=== PATIENT | male | born 1935 | race Caucasian/White ===

== ENCOUNTER 2017-10-07 22:06 | Inpatient (IN) | payer OTHER, MEDICAID ==
[~2017-10-07] VITALS: Ht 172.7 cm; Wt 95.3 kg
--- NOTE | ~2017-10-07 | WRIGHTHP ---
[place], [place] PATIENT HISTORY AND PHYSICAL EXAM NAME: AMIRA GILMORE UNIT #: [id number] ROOM: 309 DOCTOR: KATHY ACOSTA MD BIRTHDATE: [birth year] DOS: 10/08/2017 INITIAL PSYCHIATRIC EVALUATION. CHIEF COMPLAINT: "I don't know what I am doing here." HISTORY OF PRESENT ILLNESS: This is an 82-year-old white male, resident of [facility] who is admitted now due to sexually inappropriate behavior and aggression. The patient has become extremely sexually inappropriate at the [facility]. He has been wandering into female patients' rooms and has been grabbing their thighs and their legs. He has made very explicit sexual comments. He has openly stated that he is looking for [place] woman because they love to have sex more than other women. Attempts to redirect have been unsuccessful. If anything with redirection, he has become verbally and physically aggressive. His behavior is putting other residents at risk of harm and also himself. He is admitted now to rule out organic factors and to attempt to stabilize on medication. PAST MEDICAL HISTORY: Remarkable for Alzheimer's dementia, benign prostatic hypertrophy, coronary artery disease, degenerative disk disease, hypertension, non-ST elevated myocardial infarction, hyperlipidemia, obstructive sleep apnea, osteoarthritis, polyneuropathy, diabetes, and vitamin D deficiency. MENTAL STATUS: The patient is alert and oriented to person, possibly place, but not time. Mood is depressed. Affect is flat and blunted with constricted range. There is impulsivity issues and poor concentration and focus. There are no auditory or visual hallucinations. No delusions, no paranoia. Short term memory is poor and he processes slowly. 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 PLAN: I have already started him on Celexa to combat the depressive symptoms as well as decrease libido. I will increase the Celexa from 10 to 20 mg a day. I will add Exelon patch 4.6 mg a day to improve ADL maintenance, behavior, and cognition. Engage in individual and dominguez milieu activity with the ultimate plan to return to the least restrictive environment when psychiatrically stable. [place], [place] PATIENT HISTORY AND PHYSICAL EXAM NAME: AMIRA GILMORE UNIT #: [id number] ROOM: 309 DOCTOR: KATHY ACOSTA MD BIRTHDATE: [birth year] KATHY ACOSTA MD CM:HISPHYS:PATIENT HISTORY AND PHYSICAL EXAMINATION 1020 [id number] KATHY ACOSTA MD 10/08/17 1055 interface
--- NOTE | ~2017-10-07 | PR ---
[place], [place] PROGRESS NOTE NAME: AMIRA GILMORE [facility] #: [id number] UNIT #: [id number] ROOM: 311 DOCTOR: Edith CAMERON,WILFREDO BIRTHDATE: [birth year] DOS: 10/13/2017 SUBJECTIVE: Patient seen and spoke with staff. Per staff, patient did not have any sexually inappropriate behavior for the past 2 days. He is compliant with his medication. No other behavioral problems or issues. He sleeps well at night. Patient was pleasant, cooperative. He was in the day area on a wheelchair. He said that he is doing well, wants to shave. Did not express any other problems or concerns. He denied any side effect from the medication. MENTAL STATUS EXAMINATION: Patient was pleasant, cooperative. Described his mood as "okay." Affect, mood congruent. Thought process, goal directed. No flight of ideas, loosening of association. He denied auditory or visual hallucination. No delusion or paranoia noted. He denied suicidal ideation, intent or plan. He also denied any homicidal ideation, intent or plan. ASSESSMENT: 1. Major depressive disorder, recurrent without psychotic features. 2. Brief psychotic episode, brief psychotic disorder. PLAN: 1. Continue current medication and care. 2. Continue redirection. 3. Final medication management and discharge plan per the regular team. WILFREDO CAMERON MD CM:MANA 58 Edith CAMERON 10/13/17 225 interface
--- NOTE | ~2017-10-07 | PR ---
[place], [place] PROGRESS NOTE [id number] UNIT #: [id number] ROOM: 309 DOCTOR: KATHY ACOSTA MD BIRTHDATE: [birth year] DOS: 10/09/2017 CHIEF COMPLAINT: "They tell me I've been doing some things, I just don't remember." SUMMARY OF THE VISIT: The patient was interviewed as he sat eating his breakfast in the group therapy room. Upon approach, he stopped and engaged in conversation. I did take the time to confront him on some of his sexually inappropriate behavior to which he denied knowledge of and stated to me that it has been brought to his attention that he is doing this, but he does not recall it. Nurses report that he has repeatedly sought out female residents and has gradually moved closer and closer to them and attempted to put his hand on their lap or on their shoulder. He does respond to redirection, but needs constant redirection to prevent any type of interaction. MENTAL STATUS: He is alert and oriented to person, place, not necessarily time. Mood does seem to be fairly euthymic. Affect appropriate. He minimizes his behavior and tends to be dismissive overall. There are no gross psychotic symptoms. Memory for the most part for short term events is poor. PLAN: At this point, I will simplify his regimen by discontinuing the Vistaril and Celexa. I will continue to increase the Exelon patch to try to maximize benefits, bringing the dose from 4.6 mg daily to 9.5 mg a day. To further decrease impulsivity and stabilize mood, I will double the Depakote Sprinkles from 250 mg 3 times a day to 500 mg 3 times a day and plan to check a valproic acid level in the morning very soon. To decrease libido, I will add Provera 10 mg 3 times a day and support and monitor for benefits as well as risks. I will also add Seroquel 50 mg 3 times a day to also decrease impulsivity and stabilize mood. We will monitor for side effects, engage in individual and dominguez milieu activity with the ultimate plan to return to the least restrictive environment when psychiatrically stable. KATHY ACOSTA MD CM:PNTRANS 0934 KATHY ACOSTA MD 10/09/1746 interface
--- NOTE | ~2017-10-07 | PR ---
[place], [place] PROGRESS NOTE NAME: AMIRA GILMORE [facility] #: [id number] UNIT #: [id number] ROOM: 311 DOCTOR: Edith CAMERON,WILFREDO BIRTHDATE: [birth year] DOS: 10/12/2017 SUBJECTIVE: The patient seen and spoke with the staff. Per staff, the patient is doing well. No behavioral problems or issues, med compliant. The patient was in the wheelchair. Reports doing good. The patient mentioned that he has been staying in a hotel and wanted to go back there. He became a little bit irritable when I asked him about the day, date, month and the year. He told me that he answered this same question to me yesterday. When I get clarified that, he did not mention anything. He seems to be not in any distress. MENTAL STATUS EXAMINATION: A pleasant and cooperative at first, became irritable afterwards, described his mood as "okay." Affect labile. Thought process goal directed. No flight of ideas or loosening of association. He denied any auditory or visual hallucination. No delusion or paranoia noted. He denied any suicidal ideation, intent or plan. He also denied any homicidal ideation, intent or plan. ASSESSMENT: Major depressive disorder, recurrent without psychotic feature. PLAN: 1. Continue current medication and care. 2. Continue redirection. 3. Supportive care. WILFREDO CAMERON MD CM:MANA [id number] [phone] Edith CAMERON 10/13/179 interface
--- NOTE | ~2017-10-07 | PR ---
[place], [place] PROGRESS NOTE [id number] UNIT #: [id number] ROOM: 311 DOCTOR: KATHY ACOSTA MD BIRTHDATE: [birth year] DOS: 10/14/2017 CHIEF COMPLAINT: "May I have some more coffee please." SUMMARY OF THE VISIT: The patient was interviewed in the dining area. He had completed his breakfast and had drunk his coffee. He did request I help him get some more coffee as it was very good, he reported. Nurses report that he has been much more improved over the last several days and there has been little to no sexually inappropriate behavior. He has been alert and conversant and much more awake as well. MENTAL STATUS: He is alert and oriented to person, perhaps place, but not time. Mood does seem to be strongly trending towards euthymia. Affect is more appropriate. There are no symptoms of hypomania or kadi. There are no overt auditory or visual hallucinations. No delusions, no paranoia. Short term memory has gaps, otherwise he is intact. PLAN: I will renew his Ativan p.r.n. in case he requires intervention. I will continue to titrate the Namenda upwards to its maximum dose to augment the effectiveness of the Exelon. I will bring Namenda then from 5 mg b.i.d. to 10 mg in the morning and 5 mg at bedtime. We will monitor and support. We will discharge back to [facility] when psychiatrically stable. KATHY ACOSTA MD CM:PNTRANS 0946 KATHY ACOSTA MD 10/14/17 0945 interface
[2017-10-07] MEDS ORDERED: METOPROLOL SUCC50 M1 PO (22:42)
[2017-10-07] MEDS ORDERED: TRADJENTA5 M1 PO (22:42)
[2017-10-07] MEDS ORDERED: BACLOFEN20 M1 PO (22:43)
[2017-10-07] MEDS ORDERED: TAMSULOSIN HCL0.4 MG PO (22:44)
[2017-10-07] MEDS ORDERED: GLIMEPIRIDE4 M1 PO (22:45)
[2017-10-07] MEDS ORDERED: FUROSEMIDE20 M1 PO (22:46)
[2017-10-07] MEDS ORDERED: MEMANTINE HCL10 MG PO (22:47)
[2017-10-07] MEDS ORDERED: ATORVASTATIN CA80 M1 PO (22:48)
[2017-10-07] MEDS ORDERED: ZESTORETIC 20-1 EACH PO (22:48)
[2017-10-07] MEDS ORDERED: POTASSIUM CHLO10 MEQ PO ×2 (22:50→23:09)
[2017-10-07] MEDS ORDERED: LEVEMIR FL100 UNIT/1 SQ (22:54)
[2017-10-07] MEDS ORDERED: BLEPHAMIDE S.O3.5 GM OU (22:56)
[2017-10-07] MEDS ORDERED: RISA-BID CAPLE1 EACH PO (23:00)
[2017-10-07] MEDS ORDERED: B COMPLEX1 EACH PO (23:00)
[2017-10-07] MEDS ORDERED: VITAMIN D50000 UNIT PO (23:02)
[2017-10-07] MEDS ORDERED: OCUSOFT LID SC1 EACH T (23:03)
[2017-10-07] MEDS ORDERED: LOPERAMIDE HCL2 MG PO (23:04)
[2017-10-07] MEDS ORDERED: LEVOCETIRIZINE D5 M1 PO (23:05)
[2017-10-07] MEDS ORDERED: NATURAL BALANCE15 M1 OU (23:07)
[2017-10-07] MEDS ORDERED: LASIX20 MG PO (23:08)
[2017-10-07] MEDS ORDERED: BENADRYL ALLERG25 M5 PO (23:10)
[2017-10-07] MEDS ORDERED: MELATONIN3 M2 PO (23:12)
[2017-10-07] MEDS ORDERED: OMNICEF300 MG PO (23:14)
[2017-10-08 00:42] VITALS: BP 149/58
[2017-10-08 02:34] LABS: BILIRUBIN NEGATIVE (NEGATIVE); BLOOD NEGATIVE (NEGATIVE); CLARITY CLEAR (CLEAR); COLOR YELLOW (YELLOW); GLUCOSE NEGATIVE (NEGATIVE); KETONE NEGATIVE (NEGATIVE); LEUKO ESTERASE 2+ (NEGATIVE); NITRITE NEGATIVE (NEGATIVE); SPECIFIC GRAVITY <= 1.005 (1.005-1.030); UROBILINOGEN 0.2 E.U./dl (0.2-1.0)
[2017-10-08 02:45] LABS: BACTERIA TRACE
[2017-10-08 07:53] VITALS: BP 146/88
[2017-10-08 07:54] LABS: BASO # 0.1 10*3/uL (0.0-0.1); BASO % 0.4 % (0.0-1.0); EOS # 0.5 10*3/uL (0.0-0.4); EOS % 3.9 % (1.0-4.0); HEMATOCRIT 38.7 % (42.0-52.0); HEMOGLOBIN 13.6 g/dl (14.0-18.0); LYMPH # 2.1 10*3/uL (1.3-4.4); LYMPH % 17.7 % (27.0-41.0); MEAN CELL VOLUME 92.4 fl (80.0-94.0); MEAN CORPUSCULAR HGB 32.5 pg (27.0-31.0); MEAN CORPUSCULAR HGB CONC 35.1 g/dl (33.0-37.0); MEAN PLATELET VOLUME 9.9 fl (9.6-12.3); MONO # 1.2 10*3/uL (0.1-1.0); MONO % 9.7 % (3.0-9.0); NEUT # 8.2 10*3/uL (2.3-7.9); NEUT % 67.7 % (47.0-73.0); PLATELET COUNT AUTOMATED 239 10*3/uL (130-400); RED BLOOD COUNT 4.19 10*6/uL (4.50-5.90); RED CELL DISTRI WIDTH 14.2 % (0-14.5)
[2017-10-08 08:30] LABS: ALBUMIN 3.8 gm/dl (3.1-4.5); ALKALINE PHOSPHATASE 99 U/L (45-117); BUN 10 mg/dl (7-24); CHLORIDE 94 mmol/L (98-107); CHOLESTEROL 106 mg/dL (<200); CREATININE 0.88 mg/dL (0.70-1.30); HDL CHOLESTEROL 55 mg/dl (40-60); LDL CHOLESTEROL 34 mg/dL (9-159); POTASSIUM 3.9 mmol/L (3.5-5.1); SGOT/AST 10 IU/L (3-35); SGPT/ALT 21 U/L (12-78); SODIUM 133 mmol/L (136-145); TOTAL PROTEIN 7.5 gm/dL (6.4-8.2); TRIGLYCERIDES 84 mg/dl (<150); VLDL CHOLESTEROL 17 mg/dL (6-40)
[2017-10-08 08:47] LABS: VITAMIN D, 25-HYDROXY 80.3 ng/mL (30-100)
[2017-10-08 09:55] VITALS: BP 146/88
[2017-10-08 20:26] VITALS: BP 128/76
[2017-10-09 08:10] VITALS: BP 117/65
[2017-10-09 20:00] VITALS: BP 112/68
[2017-10-10 08:07] VITALS: BP 144/62
[2017-10-10 14:01] VITALS: BP 141/82
[2017-10-10 20:00] VITALS: BP 112/56
[2017-10-11 07:46] VITALS: BP 121/74
[2017-10-11 20:00] VITALS: BP 112/81
[2017-10-12 07:50] VITALS: BP 112/66
[2017-10-12 20:00] VITALS: BP 147/87
[2017-10-13 07:39] VITALS: BP 138/86
[2017-10-13 20:00] VITALS: BP 144/82
[2017-10-14 08:19] VITALS: BP 132/78
[2017-10-14 20:00] VITALS: BP 134/76
[2017-10-15] MEDS ORDERED: NAMENDA-5 PO (06:20)
[2017-10-15] MEDS ORDERED: EXEL13.31 TD (06:20)
[2017-10-15] MEDS ORDERED: NAMENDA10 MG PO (06:21)
[2017-10-15 06:22] LABS: BASO % 0.3 % (0.0-1.0); EOS # 0.4 10*3/uL (0.0-0.4); EOS % 4.9 % (1.0-4.0); HEMATOCRIT 36.6 % (42.0-52.0); HEMOGLOBIN 12.9 g/dl (14.0-18.0); LYMPH # 1.6 10*3/uL (1.3-4.4); LYMPH % 18.4 % (27.0-41.0); MEAN CELL VOLUME 92.4 fl (80.0-94.0); MEAN CORPUSCULAR HGB 32.6 pg (27.0-31.0); MEAN CORPUSCULAR HGB CONC 35.2 g/dl (33.0-37.0); MEAN PLATELET VOLUME 9.7 fl (9.6-12.3); MONO # 0.9 10*3/uL (0.1-1.0); MONO % 10.7 % (3.0-9.0); NEUT # 5.6 10*3/uL (2.3-7.9); PLATELET COUNT AUTOMATED 227 10*3/uL (130-400); RED BLOOD COUNT 3.96 10*6/uL (4.50-5.90); RED CELL DISTRI WIDTH 14.1 % (0-14.5); WHITE BLOOD COUNT 8.6 10*3/uL (4.8-10.8)
[2017-10-15] MEDS ORDERED: PROVERA10 MG PO (06:22)
[2017-10-15 06:39] LABS: ALBUMIN 3.4 gm/dl (3.1-4.5); ALKALINE PHOSPHATASE 67 U/L (45-117); BUN 12 mg/dl (7-24); CHLORIDE 98 mmol/L (98-107); CREATININE 0.77 mg/dL (0.70-1.30); PHOSPHOROUS 2.5 mg/dL (2.5-4.9); POTASSIUM 3.9 mmol/L (3.5-5.1); SGOT/AST 31 IU/L (3-35); SGPT/ALT 35 U/L (12-78); SODIUM 132 mmol/L (136-145); TOTAL PROTEIN 6.6 gm/dL (6.4-8.2)
[2017-10-15 06:40] LABS: TROPONIN I 0.024 ng/ml (<0.045)
[2017-10-16] MEDS ORDERED: HYDR25T PO (19:46)
[2017-10-16] MEDS ORDERED: ZESTORETIC 20-1 EACH PO (19:52)
== END 2017-10-15 06:20 | disposition short-term general hospital (02) | DRG 885 ==
LOC: 3N 22:06
PROVIDERS: Hospitalist; Psychiatry & Neurology Psychiatry
DX: F33.9 Major depressive disorder, recurrent, unspecified (principal); E11.42 Type 2 diabetes mellitus with diabetic polyneuropathy; E11.65 Type 2 diabetes mellitus with hyperglycemia; F23 Brief psychotic disorder; N39.0 Urinary tract infection, site not specified; F02.81 Dementia in other diseases classified elsewhere, unspecified severity, with behavioral disturbance; G30.9 Alzheimer's disease, unspecified; M19.90 Unspecified osteoarthritis, unspecified site; E55.9 Vitamin D deficiency, unspecified; M51.37 Other intervertebral disc degeneration, lumbosacral region; N40.0 Benign prostatic hyperplasia without lower urinary tract symptoms; G47.33 Obstructive sleep apnea (adult) (pediatric); I25.10 Atherosclerotic heart disease of native coronary artery without angina pectoris; I10 Essential (primary) hypertension; F41.8 Other specified anxiety disorders; E78.2 Mixed hyperlipidemia; Z79.4 Long term (current) use of insulin; Z91.09 Other allergy status, other than to drugs and biological substances; Z72.89 Other problems related to lifestyle; I25.2 Old myocardial infarction; Z79.899 Other long term (current) drug therapy

== ENCOUNTER 2017-10-15 06:22 | Inpatient (IN) | payer OTHER, MEDICAID ==
[~2017-10-15] VITALS: Ht 175.2 cm; Wt 99.5 kg
[2017-10-15] VITALS (12 sets, daily range): BP systolic 112–160; BP diastolic 61–90
[~2017-10-15 06:22] MED LIST: ATORVASTATIN CA80 M1 PO; B COMPLEX1 EACH PO; BACLOFEN20 M1 PO; BENADRYL ALLERG25 M5 PO; BLEPHAMIDE S.O3.5 GM OU; EXEL13.31 TD; FUROSEMIDE20 M1 PO; GLIMEPIRIDE4 M1 PO; LASIX20 MG PO; LEVEMIR FL100 UNIT/1 SQ; LEVOCETIRIZINE D5 M1 PO; LOPERAMIDE HCL2 MG PO; MELATONIN3 M2 PO; MEMANTINE HCL10 MG PO; METOPROLOL SUCC50 M1 PO; NAMENDA-5 PO; NAMENDA10 MG PO; NATURAL BALANCE15 M1 OU; OCUSOFT LID SC1 EACH T; OMNICEF300 MG PO; POTASSIUM CHLO10 MEQ PO; PROVERA10 MG PO; RISA-BID CAPLE1 EACH PO; TAMSULOSIN HCL0.4 MG PO; TRADJENTA5 M1 PO; VITAMIN D50000 UNIT PO; ZESTORETIC 20-1 EACH PO
[2017-10-15 06:46] LABS: BASO # 0.1 10*3/uL (0.0-0.1); BASO % 0.6 % (0.0-1.0); EOS # 0.5 10*3/uL (0.0-0.4); EOS % 4.5 % (1.0-4.0); HEMATOCRIT 38.6 % (42.0-52.0); HEMOGLOBIN 13.3 g/dl (14.0-18.0); LYMPH # 1.8 10*3/uL (1.3-4.4); LYMPH % 17.9 % (27.0-41.0); MEAN CORPUSCULAR HGB CONC 34.5 g/dl (33.0-37.0); MEAN PLATELET VOLUME 9.7 fl (9.6-12.3); MONO # 1.1 10*3/uL (0.1-1.0); MONO % 10.8 % (3.0-9.0); NEUT # 6.5 10*3/uL (2.3-7.9); NEUT % 65.6 % (47.0-73.0); PLATELET COUNT AUTOMATED 219 10*3/uL (130-400); RED BLOOD COUNT 4.15 10*6/uL (4.50-5.90); RED CELL DISTRI WIDTH 14.1 % (0-14.5); WHITE BLOOD COUNT 9.9 10*3/uL (4.8-10.8)
[2017-10-15 06:54] LABS: INTERNATIONAL NORM RATIO 1.1 (2.0-3.5)
[2017-10-15 07:04] LABS: ALBUMIN 3.7 gm/dl (3.1-4.5); ALKALINE PHOSPHATASE 69 U/L (45-117); BUN 12 mg/dl (7-24); CHLORIDE 98 mmol/L (98-107); CREATININE 0.81 mg/dL (0.70-1.30); POTASSIUM 4.2 mmol/L (3.5-5.1); SGOT/AST 37 IU/L (3-35); SGPT/ALT 38 U/L (12-78); SODIUM 130 mmol/L (136-145); TROPONIN I 0.017 ng/ml (<0.045)
[2017-10-16] VITALS: BP 160/70
[2017-10-16 07:38] LABS: BASO # 0.1 10*3/uL (0.0-0.1); BASO % 0.6 % (0.0-1.0); EOS # 0.4 10*3/uL (0.0-0.4); EOS % 5.4 % (1.0-4.0); HEMATOCRIT 37.5 % (42.0-52.0); HEMOGLOBIN 13.1 g/dl (14.0-18.0); LYMPH # 1.9 10*3/uL (1.3-4.4); LYMPH % 23.1 % (27.0-41.0); MEAN CELL VOLUME 93.1 fl (80.0-94.0); MEAN CORPUSCULAR HGB 32.5 pg (27.0-31.0); MEAN CORPUSCULAR HGB CONC 34.9 g/dl (33.0-37.0); MEAN PLATELET VOLUME 9.8 fl (9.6-12.3); MONO # 0.9 10*3/uL (0.1-1.0); MONO % 10.6 % (3.0-9.0); NEUT # 4.9 10*3/uL (2.3-7.9); NEUT % 59.7 % (47.0-73.0); PLATELET COUNT AUTOMATED 231 10*3/uL (130-400); RED BLOOD COUNT 4.03 10*6/uL (4.50-5.90); RED CELL DISTRI WIDTH 14.1 % (0-14.5); WHITE BLOOD COUNT 8.2 10*3/uL (4.8-10.8)
[2017-10-16 08:00] VITALS: BP 137/69
[2017-10-16 08:06] LABS: BUN 10 mg/dl (7-24); CHLORIDE 98 mmol/L (98-107); CHOLESTEROL 103 mg/dL (<200); CREATININE 0.83 mg/dL (0.70-1.30); HDL CHOLESTEROL 33 mg/dl (40-60); LDL CHOLESTEROL 52 mg/dL (9-159); PHOSPHOROUS 2.8 mg/dL (2.5-4.9); SODIUM 131 mmol/L (136-145); TRIGLYCERIDES 92 mg/dl (<150); VLDL CHOLESTEROL 18 mg/dL (6-40)
[2017-10-16 12:00] VITALS: BP 138/73
[2017-10-16 16:00] VITALS: BP 160/80
[2017-10-16] MEDS ORDERED: HYDR25T PO (19:46)
[2017-10-16] MEDS ORDERED: ZESTORETIC 20-1 EACH PO (19:52)
[2017-10-16 20:00] VITALS: BP 180/80
[2017-10-17] VITALS: BP 170/74
[2017-10-17 08:00] VITALS: BP 167/74
[2017-10-17 12:00] VITALS: BP 151/90
[2017-10-17 16:00] VITALS: BP 160/62
== END 2017-10-17 20:28 | DRG 206 ==
LOC: ED 06:22 → 4E 07:48 → EDHOLD 07:48 → 5E 07:55 → ICCU 09:11 → 4E 14:36
PROVIDERS: Emergency Medicine Emergency Medical Services; Student in an Organized Health Care Education/Training Program
DX: M94.0 Chondrocostal junction syndrome [Tietze] (principal); E11.40 Type 2 diabetes mellitus with diabetic neuropathy, unspecified; E11.65 Type 2 diabetes mellitus with hyperglycemia; E87.1 Hypo-osmolality and hyponatremia; F02.81 Dementia in other diseases classified elsewhere, unspecified severity, with behavioral disturbance; F33.9 Major depressive disorder, recurrent, unspecified; I25.118 Atherosclerotic heart disease of native coronary artery with other forms of angina pectoris; Z66 Do not resuscitate; G30.9 Alzheimer's disease, unspecified; E83.41 Hypermagnesemia; I10 Essential (primary) hypertension; Z51.5 Encounter for palliative care; G47.33 Obstructive sleep apnea (adult) (pediatric); M51.37 Other intervertebral disc degeneration, lumbosacral region; N40.0 Benign prostatic hyperplasia without lower urinary tract symptoms; M19.90 Unspecified osteoarthritis, unspecified site; E78.2 Mixed hyperlipidemia; D64.9 Anemia, unspecified; R74.0 Nonspecific elevation of levels of transaminase and lactic acid dehydrogenase [LDH]; F41.1 Generalized anxiety disorder; Z79.4 Long term (current) use of insulin; I25.2 Old myocardial infarction; Z79.899 Other long term (current) drug therapy; Z91.09 Other allergy status, other than to drugs and biological substances